=== PATIENT | female | born 1980 | race African-American/Black ===

== ENCOUNTER 2021-12-14 17:14 | Emergency (ER) | payer BC, OTHER ==
[2021-12-14] MEDS ORDERED: ASPIRIN 81 MG CHEWABLE TABLET ONE (18:00)
[2021-12-14] MEDS ORDERED: MORPHINE 4 MG/ML SYR ONE ×2 (18:00→22:02)
[2021-12-14] MEDS ORDERED: ONDANSETRON 4 MG/2 ML VIAL ONE ×2 (18:00→22:02)
[2021-12-14 18:13] LABS: Absolute Lymphocytes (CBC) 1.6 K/uL (0.7-4.9); Hematocrit 41.2 % (36.0-45.0); Lymphocytes % 29.7 % (15.3-44.8); MCV 91.5 fL (80-100); MPV 6.9 fL (7.6-11.3); RBC Red Blood Cell Count 4.51 M/uL (3.86-4.86)
[2021-12-14 18:15] LABS: Protime INR 1.07
--- NOTE | 2021-12-14 18:21 | RAD REPORT ---
EXAM DESCRIPTION: Dorota Single View12/14/2021 5:59 pm CLINICAL HISTORY: Chest pain COMPARISON: 2018 FINDINGS: The lungs appear clear of acute infiltrate. The heart is normal size IMPRESSION: No acute abnormalities displayed
[2021-12-14 18:24] LABS: Albumin 3.6 g/dL (3.4-5.0); Bilirubin Direct 0.3 mg/dL (0-0.2); Bilirubin Total 0.9 mg/dL (0.2-1.0); Magnesium 1.8 mg/dL (1.8-2.4); Protein, Total 8.8 g/dL (6.4-8.2); Troponin High Sensitivity 4.8 pg/mL (<58.9)
[2021-12-14] MEDS ORDERED: KETOROLAC 30 MG/ML INJ ONE (19:42)
[2021-12-14] MEDS ORDERED: NA CHLORIDE 0.9% 1,000 ML ONE (19:42)
[2021-12-14 20:00] LABS: Urine Blood Negative (Negative); Urine Glucose Negative (Negative); Urine Protein Trace (Negative); Urine Specific Gravity 1.025 (1.005-1.030)
--- NOTE | 2021-12-14 20:24 | RAD REPORT ---
EXAM DESCRIPTION: CT - Chest For Pe Angio - 12/14/2021 8:11 pm CLINICAL HISTORY: Chest pain COMPARISON: 2018 TECHNIQUE: Dynamically enhanced axial 3 mm thick images of the chest were obtained during administra tion of <100> mL Isovue 370 IV contrast. Coronal and oblique reconstruction images were generated and reviewed. Exam utilizes a protocol for optimal evaluation of pulmonary arterial tree. Maximum intensity projections 3D imaging was utilized All CT scans are performed using dose optimization technique as appropriate and may include automated exposure control or mA/KV adjustment according to patient size. FINDINGS: A pulmonary embolus is not seen. A thoracic aortic aneurysm is not noted. A pleural effusion is not seen. A pericardial effusion is not seen. A lung consolidation is not present. IMPRESSION: Negative for a pulmonary embolism.
[2021-12-14] MEDS ORDERED: LABETALOL 20 MG/4ML SYRINGE IV ONE (21:27)
[2021-12-14] MEDS ORDERED: POTASSIUM 25 MEQ EFFERV TAB ONE ×2 (21:27→23:02)
[2021-12-14 22:05] LABS: Urine Specific Gravity/Preg 1.025 (1.005-1.030)
[2021-12-14] MEDS ORDERED: PROMETHAZINE INJ 25 MG/ML AMP ONE ×2 (23:01→23:04)
--- NOTE | 2021-12-14 23:49 | EDPHYS ---
Physician Documentation [facility] Name: Karie Bennett Age: 41 yrs Sex: Female : 1980 Arrival Date: 12/14/2021 Time: 17:15 Bed 6 Private MD: ED Physician Eb Rao HPI: 12/14 17:33 This 41 yrs old Black Female presents to ER via Ambulatory with complaints of High cp Blood Pressure, Chest Pain, Shortness Of Breath. 17:33 The patient or guardian reports chest pain that is located primarily in the anterior cp aspect of right upper chest and right breast. 17:33 Onset: 2 day(s) ago. The pain radiates to right back. Associated signs and symptoms: cp Pertinent positives: cough, shortness of breath. 17:34 The chest pain is described as aching, a pressure. Duration: The patient or guardian cp reports a single episode, that is still ongoing. Severity of pain: in the emergency department the pain is unchanged. Patient reports right side upper chest pain that started yesterday. Denies injury. History of HTN. Patient reports taking daily hypertensive medication, Lisinopril. 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 - Social history:: Smoking status: Patient denies any tobacco usage or history of. ROS: 17:35 Constitutional: Negative for body aches, chills, fever, poor PO intake. cp 17:35 Cardiovascular: Positive for chest pain, Negative for edema, palpitations. cp 17:35 Respiratory: Positive for shortness of breath. Exam: 17:35 ECG was reviewed by the Attending Physician. cp 17:40 Constitutional: The patient appears in no acute distress, alert, awake, cp non-diaphoretic, non-toxic, well developed, well nourished, uncomfortable. 17:40 Head/Face: Normocephalic, atraumatic. cp 17:40 Eyes: Periorbital structures: appear normal, Conjunctiva: normal, no exudate, no injection, Sclera: no appreciated abnormality, Lids and lashes: appear normal, bilaterally. 17:40 ENT: External ear(s): are unremarkable, Nose: is normal, Mouth: Lips: moist, Oral mucosa: pink and intact, moist, Posterior pharynx: Airway: no evidence of obstruction, patent. 17:40 Neck: ROM/movement: is normal, is supple, without pain, no range of motions limitations, no nuchal rigidity. 17:40 Chest/axilla: Inspection: normal, Palpation: crepitus, is not appreciated, tenderness, that is severe, of the anterior aspect of right upper chest and right breast, that partially reproduces the patient's complaints. 17:40 Cardiovascular: Rate: normal, Rhythm: regular, Heart sounds: murmur, not appreciated, Edema: is not appreciated, JVD: is not appreciated. 17:40 Respiratory: the patient does not display signs of respiratory distress, Respirations: normal, no use of accessory muscles, no retractions, labored breathing, is not present, Breath sounds: are clear throughout, no decreased breath sounds, no stridor, no wheezing. 17:40 Abdomen/GI: Inspection: abdomen appears normal, Bowel sounds: active, all quadrants, Palpation: abdomen is soft and non-tender, in all quadrants. 17:40 Back: pain, that is moderate, of the right scapular area, vertebral tenderness, is not appreciated. 17:40 Skin: cellulitis, is not appreciated, no rash present. 17:40 Neuro: Orientation: to person, place \\T\\ time. Mentation: is normal, Cerebellar function: is grossly normal, Motor: moves all fours, strength is normal, Sensation: is normal. Vital Signs: 17:22 BP 189 / 113; Pulse 87; Resp 17; Temp 97.1(TE); Pulse Ox 100% on R/A; Weight 75.3 kg; ss Height 5 ft. 6 in. (167.64 cm); Pain 10/10; 18:10 BP 172 / 111; Pulse 84; Resp 16; Pulse Ox 100% on R/A; kr3 19:05 BP 179 / 106; kr3 21:28 BP 185 / 108; Pulse 72; Resp 18; Pulse Ox 100% on R/A; kd3 22:02 BP 159 / 113; Pulse 75; Resp 18; Pulse Ox 100% on R/A; kd3 17:22 Body Mass Index 26.79 (75.30 kg, 167.64 cm) ss MDM: 17:16 Patient medically screened. cp 18:00 Differential diagnosis: acute myocardial infarction, anxiety, chest wall pain, cp costochondritis, esophagitis, pericarditis, pleurisy, pneumonia, pneumothorax, pulmonary embolus. 23:10 Data reviewed: vital signs, nurses notes, lab test result(s), EKG, radiologic studies, cp CT scan, plain films. 23:10 The patient was given aspirin in the Emergency Department. cp 23:47 ED course: VSS. Blood pressure remains elevated. Recommend f/u with pcp. Low suspicion cp for cardiac cause of pain with normal EKG and negative troponin times 2. Will discharge to home for continued monitoring. 23:47 Test interpretation: by ED physician or midlevel provider: ECG, plain radiologic cp studies. Counseling: I had a detailed discussion with the patient and/or guardian regarding: the historical points, exam findings, and any diagnostic results supporting the discharge/admit diagnosis, the presence of at least one elevated blood pressure reading (>120/80) during this emergency department visit, lab results, radiology results, the need for outpatient follow up, a family practitioner, to return to the emergency department if symptoms worsen or persist or if there are any questions or concerns that arise at home. Response to treatment: the patient's symptoms have mildly improved after treatment, and as a result, I will discharge patient. Special discussion: Based on the patient's history, exam, and Dx evaluation, there is no indication for emergent intervention or inpatient Tx. It is understood by the patient/guardian that if the Sx's persist or worsen they need to return immediately for re-evaluation. 12/14 17:30 Order name: Basic Metabolic Panel; Complete Time: 19:09 cp 12/14 20:30 Interpretation: Normal except: K 3.0; BUN 5. cp 12/14 17:30 Order name: CBC with Diff; Complete Time: 19:09 cp 12/14 21:05 Interpretation: Normal except: MCV 91.5; MPV 6.9. cp 12/14 17:30 Order name: D-Dimer; Complete Time: 19:09 cp 12/14 17:30 Order name: LFT's; Complete Time: 19:09 cp 12/14 17:30 Order name: Magnesium; Complete Time: 19:09 cp 12/14 17:30 Order name: NT PRO-BNP; Complete Time: 19:09 cp 12/14 17:30 Order name: PT-INR; Complete Time: 19:09 cp 12/14 17:30 Order name: Troponin HS; Complete Time: 19:09 cp 12/14 17:30 Order name: XRAY Chest (1 view); Complete Time: 19:09 cp 12/14 17:36 Order name: COVID-19 SARS RT PCR (Document "Date of Onset" if Symptomatic); Complete cp Time: 21:05 12/14 21:05 Interpretation: Reviewed. cp 12/14 19:10 Order name: CT Chest For PE Angio; Complete Time: 20:29 cp 12/14 20:30 Interpretation: Report reviewed. cp 12/14 20:01 Order name: Urine Dipstick-Ancillary; Complete Time: 20:29 EDMS 12/14 20:30 Interpretation: Normal except: UKET Trace; UPROT Trace. cp 12/14 20:12 Order name: Urine --Ancillary (enter results); Complete Time: 22:50 mw2 12/14 21:34 Order name: Troponin High Sensitivity; Complete Time: 22:50 cp 12/14 17:30 Order name: EKG; Complete Time: 17:31 cp 12/14 17:30 Order name: Cardiac monitoring; Complete Time: 17:33 cp 12/14 17:30 Order name: EKG - Nurse/Tech; Complete Time: 17:33 cp 12/14 17:30 Order name: IV Saline Lock; Complete Time: 17:51 cp 12/14 17:30 Order name: Labs collected and sent; Complete Time: 17:51 cp 12/14 17:30 Order name: O2 Per Protocol; Complete Time: 17:33 cp 12/14 17:30 Order name: O2 Sat Monitoring; Complete Time: 17:33 cp 12/14 17:30 Order name: Urine Dipstick-Ancillary (obtain specimen); Complete Time: 20:00 cp 12/14 17:30 Order name: Urine Test (obtain specimen); Complete Time: 20:00 cp EC:35 Rate is 85 beats/min. Rhythm is regular. NJ interval is normal. QRS interval is normal. cp QT interval is normal. T waves are Inverted in lead aVR. Interpreted by me. Reviewed by me. Administered Medications: 18:04 Drug: Aspirin Chewable Tablet 324 mg Route: PO; ll1 19:06 Follow up: Response: No adverse reaction kr3 18:04 Drug: morphine 4 mg {Note: rass 0, pain 10/10.} Route: IVP; Infused Over: 4 mins; Site: ll1 left antecubital; 19:06 Follow up: Response: No adverse reaction kr3 18:05 Drug: Zofran (Ondansetron) 4 mg Route: IVP; Site: left antecubital; 1 19:06 Follow up: Response: No adverse reaction; Pain is decreased; RASS: Alert and Calm (0) kr3 19:56 Drug: Ketorolac 15 mg Route: IVP; Site: right antecubital; kd3 19:56 Drug: NS 0.9% 1000 ml Route: IV; Rate: 1 bolus; Site: right antecubital; kd3 21:29 Drug: Potassium Effervescent Tablet 50 mEq Route: PO; kd3 21:29 Drug: Labetalol 10 mg Route: IV; Rate: calculated rate; Site: right antecubital; kd3 22:01 Drug: morphine 4 mg Route: IVP; Infused Over: 4 mins; Site: right antecubital; kd3 22:01 Drug: Zofran (Ondansetron) 4 mg Route: IVP; Site: right antecubital; kd3 23:04 Drug: Potassium Effervescent Tablet 25 mEq Route: PO; kd3 23:04 Drug: Phenergan (promethazine) 12.5 mg Route: IVP; Site: right antecubital; kd3 Disposition Summary: 12/14/21 23:49 Discharge Ordered Location: Home cp Problem: new cp Symptoms: have improved cp Condition: Stable cp Diagnosis - Chest pain, unspecified cp - Hypertensive heart disease without heart failure cp Followup: cp - With: Private Physician - When: 1 - 2 days - Reason: Recheck today's complaints Discharge Instructions: - Discharge Summary Sheet cp - Nonspecific Chest Pain, Adult cp - Hypertension, Adult cp - Aspirin and Your Heart cp - Form - Blood Pressure Record Sheet cp - How to Take Your Blood Pressure cp Forms: - Medication Reconciliation Form cp - Thank You Letter cp - Antibiotic Education cp - Prescription Opioid Use cp - Work release form lp1 Prescriptions: - Diclofenac Sodium 75 mg Oral Tablet Sustained Release - take 1 tablet by ORAL route 2 times per day; 30 tablet; Refills: 0, Product cp Selection Permitted - Tramadol 50 mg Oral Tablet - take 1 tablet by ORAL route every 8 hours as needed; 12 tablet; Refills: 0, cp Product Selection Permitted Signatures: Dispatcher [employer] [facility] Pretty Tobin RN RN ss Eb Dewey PA PA cp Benedicto Edgar RN RN ll1 Maia Lamb RN RN kd3 Angela Peñaloza RN kr3 Corrections: (The following items were deleted from the chart) 17:35 17:34 The patient or guardian reports chest pain that is located primarily in the cp anterior aspect of right upper chest and right breast, 18:08 17:33 ECG was reviewed by the Attending Physician. [facility] 18:08 17:33 Rate is 85 beats/min. Rhythm is regular. NJ interval is normal. QRS interval is cp normal. QT interval is normal. T waves are Inverted in lead aVR. Interpreted by me. Reviewed by me. cp 20:37 19:11 Abdomen Limited+US.RAD.BRZ ordered. [facility] 12/15 19:42 12/14 23:11 ED course: VSS. Blood pressure remains elevated. Recommend f/u with pcp. cp Low suspicion for cardiac cause of pain with normal EKG and negative troponin times 2. Will discharge to home for continued monitoring. cp
--- NOTE | 2021-12-14 23:49 | ER ---
Nurse's Notes [facility] Name: Karie Bennett Age: 41 yrs Sex: Female : 1980 Arrival Date: 12/14/2021 Time: 17:15 Bed 6 Private MD: Diagnosis: Chest pain, unspecified;Hypertensive heart disease without heart failure Presentation: 12/14 17:22 Chief complaint: Patient states: Chest discomfort, shortness of breath and high blood ss pressure x 2 days. Coronavirus screen: Client denies travel out of the [place] in the last 14 days. Ebola Screen: Patient denies exposure to infectious person. Patient denies travel to an Ebola-affected area in the 21 days before illness onset. Initial Sepsis Screen: Does the patient meet any 2 criteria? No. Patient's initial sepsis screen is negative. Does the patient have a suspected source of infection? No. Patient's initial sepsis screen is negative. Risk Assessment: Do you want to hurt yourself or someone else? Patient reports no desire to harm self or others. Onset of symptoms. Onset of symptoms was December 12, 2021. 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 - Social history:: Smoking status: Patient denies any tobacco usage or history of. Screenin:06 Abuse screen: Denies threats or abuse. Nutritional screening: No deficits noted. ll1 Tuberculosis screening: No symptoms or risk factors identified. Fall Risk IV access (20 points). Total Thompson Fall Scale indicates No Risk (0-24 pts). Assessment: 18:05 General: Appears uncomfortable, Behavior is calm, cooperative, appropriate for age. ll1 Pain: Complains of pain in anterior aspect of right upper chest Pain radiates to R upper back Quality of pain is described as aching, pressure, Pain began 1 day ago. Aggravated by increased activity, weight bearing. Cardiovascular: Reports chest pain, fatigue, shortness of breath, Heart tones S1 S2. Respiratory: Reports shortness of breath Breath sounds are clear bilaterally. 19:06 Reassessment: No changes from previously documented assessment. Patient and/or family kr3 updated on plan of care and expected duration. Pain level reassessed. Patient is alert, oriented x 3, equal unlabored respirations, skin warm/dry/pink. 19:39 General: Appears in no apparent distress. Behavior is calm, cooperative. Neuro: Level kd3 of Consciousness is awake, alert, obeys commands, Oriented to person, place, time, situation. Respiratory: Airway is patent Trachea midline Respiratory effort is even, unlabored, Respiratory pattern is regular, symmetrical. 23:04 GI: Pt is actively vomiting undigested food. kd3 Vital Signs: 17:22 BP 189 / 113; Pulse 87; Resp 17; Temp 97.1(TE); Pulse Ox 100% on R/A; Weight 75.3 kg; ss Height 5 ft. 6 in. (167.64 cm); Pain 10/10; 18:10 BP 172 / 111; Pulse 84; Resp 16; Pulse Ox 100% on R/A; kr3 19:05 BP 179 / 106; kr3 21:28 BP 185 / 108; Pulse 72; Resp 18; Pulse Ox 100% on R/A; kd3 22:02 BP 159 / 113; Pulse 75; Resp 18; Pulse Ox 100% on R/A; kd3 17:22 Body Mass Index 26.79 (75.30 kg, 167.64 cm) ED Course: 17:15 Patient arrived in ED. rg4 17:15 Eb Dewey PA is PHCP. cp 17:15 Baldev Tristan DO is Attending Physician. cp 17:23 Triage completed. ss 17:23 Arm band placed on right wrist. ss 17:29 Angela Peñaloza, DIA is Primary Nurse. kr3 17:50 Inserted saline lock: 22 gauge in left antecubital area, using aseptic technique. Blood kr3 collected. 18:01 XRAY Chest (1 view) In Process Unspecified. EDMS 18:05 COVID-19 SARS RT PCR (Document "Date of Onset" if Symptomatic) Sent. ll1 18:06 Patient has correct armband on for positive identification. Bed in low position. Call 1 light in reach. Side rails up X 1. Client placed on continuous cardiac and pulse oximetry monitoring. NIBP monitoring applied. 18:07 Patient maintains SpO2 saturation greater than 95% on room air. ll1 20:01 Inserted saline lock: 20 gauge in right antecubital area, using aseptic technique. IV kd3 discontinued, intact, bleeding controlled, No redness/swelling at site. Pressure dressing applied. 20:12 COVID-19 SARS RT PCR (Document "Date of Onset" if Symptomatic) Sent. mw2 20:13 CT Chest For PE Angio In Process Unspecified. EDMS 21:09 Eb Rao MD is Attending Physician. cp 07 00:10 No provider procedures requiring assistance completed. kd3 Administered Medications: 12/14 18:04 Drug: Aspirin Chewable Tablet 324 mg Route: PO; ll1 19:06 Follow up: Response: No adverse reaction kr3 18:04 Drug: morphine 4 mg {Note: rass 0, pain 10/10.} Route: IVP; Infused Over: 4 mins; Site: ll1 left antecubital; 19:06 Follow up: Response: No adverse reaction kr3 18:05 Drug: Zofran (Ondansetron) 4 mg Route: IVP; Site: left antecubital; 1 19:06 Follow up: Response: No adverse reaction; Pain is decreased; RASS: Alert and Calm (0) kr3 19:56 Drug: Ketorolac 15 mg Route: IVP; Site: right antecubital; kd3 19:56 Drug: NS 0.9% 1000 ml Route: IV; Rate: 1 bolus; Site: right antecubital; kd3 21:29 Drug: Potassium Effervescent Tablet 50 mEq Route: PO; kd3 21:29 Drug: Labetalol 10 mg Route: IV; Rate: calculated rate; Site: right antecubital; kd3 22:01 Drug: morphine 4 mg Route: IVP; Infused Over: 4 mins; Site: right antecubital; kd3 22:01 Drug: Zofran (Ondansetron) 4 mg Route: IVP; Site: right antecubital; kd3 23:04 Drug: Potassium Effervescent Tablet 25 mEq Route: PO; kd3 23:04 Drug: Phenergan (promethazine) 12.5 mg Route: IVP; Site: right antecubital; kd3 Medication: 18:06 VIS not applicable for this client. ll1 Outcome: 23:49 Discharge ordered by MD. radford 12/15 00:11 Discharged to home ambulatory. kd3 Condition: improved Discharge instructions given to patient, Instructed on discharge instructions, follow up and referral plans. medication usage, Demonstrated understanding of instructions, follow-up care, medications, Prescriptions given X 2. 00:11 Patient left the ED. kd3 Signatures: Dispatcher [employer] EDMS Pretty Tobin RN RN ss Eb Dewey PA PA Suzette Espinoza rg4 Hari Lopez mw2 Benedicto Edgar RN RN ll1 Maia Lamb RN RN kd3 Angela Peñaloza RN RN kr3
[2021-12-15 01:31] VITALS: TEMP 97.1; O2SAT 100
[2021-12-15 01:39] VITALS: BP 159/113
--- NOTE | 2021-12-18 14:00 | EKG ---
Test Date: 2021-12-14 Test Time: 17:28:11 Apprentice Plant Attendant: DICKL MEASUREMENT RESULTS: Intervals: Rate: 85 VA: 146 QRSD: 86 QT: 386 QTc: 459 [place]: P: 74 VA: 146 QRS: 5 T: 60 INTERPRETIVE STATEMENTS: Normal sinus rhythm Normal ECG No previous ECG available for comparison Electronically Signed On 12-18-21 13:52:10 CDT by Jb Brito
== END 2021-12-15 00:11 | disposition home or self-care (01) ==
LOC: ER 17:14
DX: I11.9 Hypertensive heart disease without heart failure (principal); I10 Essential (primary) hypertension; Z20.822 Contact with and (suspected) exposure to COVID-19
CPT/HCPCS: 93005; 85025; 80048; 36415; 83735; 81025; 85610; 85379; 80076; 81003; 84484 ×2; 83880; 71275; 71045; U0003; Q9967; J2550; J7030; J2405 ×2; 99284

== ENCOUNTER 2022-10-16 12:44 | Emergency (ER) | payer OTHER ==
--- OUTSIDE RECORDS SUMMARY | 2022-10-16 12:49 | XMS REPORT | Continuity of Care Document ---
:1980 Author Organization [facility] t Address [address] [facility] [place] [address] Care Team Providers Name Role Phone Tiffany SOTO, Alessandro Primary Care Physician [phone] TESS YI Attending Clinician Unavailable MARIO MANCILLA Attending Clinician Unavailable LAB59 Attending Clinician Unavailable [place] SOTO, Gallo Avila Attending Clinician [phone] Mario Mancilla DO Attending Clinician Tess Yi MD Attending Clinician LAB90 Attending Clinician Unavailable GALOL GROVE Attending Clinician Unavailable [email or web address] Attending Clinician Unavailable [email or web address] Admitting Clinician Unavailable Payers Payer Name Policy Type Policy Number Effective Date Expiration Date S сер[facility]ей [facility] 3 [id number] 2021 00:00:00 [facility] [id number] Problems Condition Condition Condition Status Onset Resolution Last Treating Co mments Source Name Details Category Date Date Treatment Clinician Date Polyarthra Polyarthra Disease Active 2021-06 K elsey lgia lgia 0-05 Seybold 00:00: - 00 Externa l Connective Connective Disease Active K elsepatricia tissue tissue 8-04 Seybold disease disease 00:00: - 00 Externa l Raynaud's Raynaud's Disease Active Bob sey disease disease 804 Seybold without without 00:00: - gangrene gangrene 00 Documentation Coordinator a l Overweight Overweight Disease Active K elsey (BMI (BMI 7- Seybold 25.0-29.9) 25.0-29.9) 00:00: - 00 Externa l Primary Primary Disease Active Marlene hypertensi hypertensi 12-28 Se ybold on on 00:00: - 00 Externa l Well adult Well adult Disease Active K mariela exam exam 12-28 Seybold 00:00: - 00 Externa l Varicose Varicose Disease Active Kelse y veins of veins of 12-28 Seybol d bilateral bilateral 00:00: - lower lower 00 Externa extremitie extremitie l s with s with other other complicati complicati ons ons Viral Viral Disease Active Methodi hepatitis hepatitis 10-17 st [facility] 00:00: Hospita 00 l Migraine Migraine Disease Active Metho di 10-17 00:00: Hospita 00 l Hypertensi Hypertensi Disease Active M ethodi ve ve 5-10 st disorder disorder 00:00: Hospit a 00 l Varicose Varicose Disease Active Metho di veins of veins of 5-10 st both lower both lower 00:00: Ho spita extremitie extremitie 00 l s s Reactive Reactive Disease Active Metho di airway airway 5-10 st disease disease 00:00: Hospita 00 l Tubo-ovari Tubo-ovari Disease Active M ethodi an abscess an abscess 10-17 st 00:00: Hospita 00 l Endometrio Endometrio Disease Active M ethodi sis sis 5 st 00:00: Hospita 00 l Hip pain Hip pain Disease Active Metho di 10-17 st 00:00: Hospita 00 l Left leg Left leg Disease Active Metho di pain pain 10-17 st 00:00: Hospita 00 l Cough Cough Disease Active Methodi 5-10 st 00:00: Hospita 00 l Adult body Adult body Disease Active 0 M ethodi mass index mass index 5-10 st greater greater 00:00: Hospita than 30 than 30 00 l Peripheral Peripheral Disease Active M ethodi venous venous 5-10 st insufficie insufficie 00:00: Ho spita ncy ncy 00 l Allergies, Adverse Reactions, Alerts This patient has no known allergies or adverse reactions. Family History Family Member Diagnosis Comments Start Date Stop Date Source Natural father Heart attack [facility] Natural father Hypertension [facility] Natural father Diabetes [facility] Natural mother Hypertension [facility] Social History Social Habit Start Date Stop Date Quantity Comments Source History SDOH Marlene Liu ld - Alcohol Frequency Externa l History SDOH Marlene Liu ld - Alcohol Std Drinks Documentation Coordinator al History SDOH Marlene Liu ld - Alcohol Binge External Gender identity [facility] Sexual orientation Method ist [facility] Cigarettes smoked 2021-12-28 2021-12-28 Marlene Engel - current (pack per 00:00:00 00:00:00 Externa l day) - Reported Cigarette 2021-12-28 2021-12-28 Marlene Engel - pack-years 00:00:00 00:00:00 External Tobacco use and 2021-12-28 2021-12-28 Former smokeless Bob Engel - exposure 00:00:00 00:00:00 tobacco user External Alcohol Comment 2021-12-28 2021-12-28 Socially Marlene cheema - 00:00:00 00:00:00 External Education 2021-12-28 2021-12-28 16 Marlene Engel - 00:00:00 00:00:00 External History of Social 2019-01-27 2019-01-[address] function 00:00:00 00:00:00 Hospital Alcohol intake 2019-01-06 2019-01-06 [facility] non-drinker of Hospital alcohol (finding) History of tobacco 2013-08-07 User of Marlene Engel - use 00:00:00 smokeless External tobacco Sex Assigned At [birth year] [facility] 00:[facility] Hospital Smoking Status Start Date Stop Date Source Never smoked tobacco [facility] Ex-smoker 2021-12-28 00:00:00 2021-12-28 00:00:00 Marlene geiger - External Medications Ordered Filled Start Stop Current Ordering Indication Dosage Frequency Signature Comments Components Source Medication Medication Date Date Medication? Clinician (SIG) Name Name Vitamin D, Yes 03101680 26907D Take 1 Marlene Ergocalcife 3-02 capsule Seybo ld rol, 1.25 00:00: (50,000 - MG (68841 00 units Externa UT) oral total) by l Capsule mouth once a week Meloxicam Yes [id number] 7.5mg Take 1 K elsey 7.5 MG oral 3-01 tablet Seybol d Tablet 00:00: (7.5 mg - 00 total) by Externa mouth l daily Tizanidine Yes [id number] 2mg QD Take 1 K elsey HCl 2 MG 3-01 tablet (2 Seybol d oral Tablet 00:00: mg total) - 00 by mouth Externa nightly as l needed for muscle spasms Meloxicam Yes [id number] 7.5mg Take 1 K elsey 7.5 MG oral 3-01 tablet Seybol d Tablet 00:00: (7.5 mg - 00 total) by Externa mouth l daily Tizanidine Yes [id number] 2mg QD Take 1 K elsey HCl 2 MG 3-01 tablet (2 Seybol d oral Tablet 00:00: mg total) - 00 by mouth Externa nightly as l needed for muscle spasms Wegovy 2.4 2022- No INJECT 2.4 Marlene MG/0.75ML 2-09 -22 MG Seybold subcutaneou 00:00: 00:00 SUBCUTANEO - s Solution 00 :00 USLY Externa Auto-inject WEEKLY. l or Phentermine 2022- No 1{tbl} Take 1 K elsey HCl 37.5 MG 2-12 09- tablet by Se ybold oral Tablet 00:00: 00:00 mouth - 00 :00 daily Externa l Carvedilol 2023-0 Yes [id number] 25mg Take 1 K elsey (Coreg) 25 1-20 tablet (25 Sey bold MG oral 00:00: mg total) - Tablet 00 by mouth Externa in the l morning and 1 tablet (25 mg total) in the evening. Take with meals. Carvedilol 2022-0 Yes [id number] 25mg Take 1 K elsey (Coreg) 25 1-20 tablet (25 Sey bold MG oral 00:00: mg total) - Tablet 00 by mouth Externa in the l morning and 1 tablet (25 mg total) in the evening. Take with meals. Carvedilol 2022-0 Yes [id number] 25mg Take 1 K elsey (Coreg) 25 1-20 tablet (25 Sey bold MG oral 00:00: mg total) - Tablet 00 by mouth Externa in the l morning and 1 tablet (25 mg total) in the evening. Take with meals. Carvedilol 2022-0 Yes [id number] 25mg Take 1 K elsey (Coreg) 25 1-20 tablet (25 Sey bold MG oral 00:00: mg total) - Tablet 00 by mouth Externa in the l morning and 1 tablet (25 mg total) in the evening. Take with meals. metroNIDAZO 2021-06 Yes 500mg Q.5D Take [address] [facility] [facility] (FlagyL) 1-16 tablet [facility] 500 MG 00:00: (500 mg Medical tablet 00 total) by Center mouth 2 (two) times daily. metroNIDAZO 2021-06 Yes 500mg Q.5D Take [address] [facility] (FlagyL) 1-16 tablet [facility] 500 MG 00:00: (500 mg Medical tablet 00 total) by Center mouth 2 (two) times daily. Carvedilol 2022- No [id number] 12.5mg Take 1 Marlene (Coreg) 9-28 01-20 tablet Seybold 12.5 MG 00:00: 00:00 (12.5 mg - oral Tablet 00 :00 total) by Ext coty mouth in l the morning and 1 tablet (12.5 mg total) in the evening. Take with meals. medroxyPROG Yes 150mg Inject [address] ESTERone 9-20 mL (150 mg [facility] 150 mg/mL 00:00: total) Medica l Syrg 00 intramuscu Center larly every 3 (three) months. medroxyPROG 0 Yes 150mg Inject [address] ESTERone 9-20 mL (150 mg [facility] 150 mg/mL 00:00: total) Medica l Syrg 00 intramuscu Center larly every 3 (three) months. Amlodipine 2021-0 Yes [id number] 10mg Take 1 K elsey Besylate 8-15 tablet (10 Seybo ld (Norvasc) 00:00: mg total) - 10 MG oral 00 by mouth Exter na Tablet daily l Amlodipine 2021-0 Yes [id number] 10mg Take 1 K elsey Besylate 8-15 tablet (10 Seybo ld (Norvasc) 00:00: mg total) - 10 MG oral 00 by mouth Exter na Tablet daily l Amlodipine 0 Yes [id number] 10mg Take 1 K elsey Besylate 8-15 tablet (10 Seybo ld (Norvasc) 00:00: mg total) - 10 MG oral 00 by mouth Exter na Tablet daily l Amlodipine 2021-0 Yes [id number] 10mg Take 1 K elsey Besylate 8-15 tablet (10 Seybo ld (Norvasc) 00:00: mg total) - 10 MG oral 00 by mouth Exter na Tablet daily l amLODIPine Yes 5mg QD Take [address] (NORVASC) 5 8-08 by mouth Luke s MG tablet 00:00: daily. Medica l 00 Johnson amLODIPine 0 Yes 5mg QD Take [address] (NORVASC) 5 8-08 by mouth Luke s MG tablet 00:00: daily. Medica l 00 Center carvediloL 2021-[address] [facility] (COREG) 8-05 Tablet(s) [facility] 6.25 MG 00:00: By Mouth Medica l tablet 00 Morning-Ev Center ening carvediloL 2021-[address] [facility] (COREG) 8-05 Tablet(s) [facility] 6.25 MG 00:00: By Mouth Medica l tablet 00 Morning-Ev Center ening medroxyPROG 2021-0 Yes INJECT ONE Marlene ESTERone 6-20 (1) Seybold Acetate 150 00:00: MILLILITER - MG/ML 00 S Externa intramuscul INTRAMUSCU l ar LARLY Suspension EVERY 3 Prefilled MONTHS. Syringe medroxyPROG Yes INJECT ONE Marlene ESTERone 6-20 (1) Seybold Acetate 150 00:00: MILLILITER - MG/ML 00 S Externa intramuscul INTRAMUSCU l ar LARLY Suspension EVERY 3 Prefilled MONTHS. Syringe medroxyPROG Yes INJECT ONE Marlene ESTERone 6-20 (1) Seybold Acetate 150 00:00: MILLILITER - MG/ML 00 S Externa intramuscul INTRAMUSCU l ar LARLY Suspension EVERY 3 Prefilled MONTHS. Syringe medroxyPROG Yes INJECT ONE Marlene ESTERone 6-20 (1) Seybold Acetate 150 00:00: MILLILITER - MG/ML 00 S Externa intramuscul INTRAMUSCU l ar LARLY Suspension EVERY 3 Prefilled MONTHS. Syringe lisinopril- Yes lisinopril Methodi hydrochloro 5-[address] thiazide 15:57: mg-hydroch Hos brittaney (PRINZIDE,Z 01 lorothiazi l ESTORETIC) de 12.5 mg 20-12.5 mg tablet per tablet lisinopril- Yes lisinopril Methodi hydrochloro 5-[address] thiazide 15:57: mg-hydroch Hos brittaney (PRINZIDE,Z 01 lorothiazi l ESTORETIC) de 12.5 mg 20-12.5 mg tablet per tablet omeprazole Yes omeprazole M ethodi (PriLOSEC) 5-[address] 40 MG 15:57: capsule,de Hospit a capsule layed l release omeprazole Yes omeprazole M ethodi (PriLOSEC) 5-[address] 40 MG 15:57: capsule,de Hospit a capsule layed l release NASCOBAL Yes Methodi 500 4-22 st mcg/spray 00:00: Hospita spray,non-a 00 l erosol NASCOBAL Yes Methodi 500 4-22 st mcg/spray 00:00: Hospita spray,non-a 00 l erosol Immunizations Ordered Immunization Filled Immunization Date Status Commen ts Source Name Name Tdap- (Boostrix, 2022-08-01 Completed Marlene ellisbovanessa - Adacel) 00:00:00 External Tdap- (Boostrix, 2022-08-01 Completed Marlene geiger - Adacel) 00:00:00 External Tdap- (Boostrix, 2022-08-01 Completed Marlene ellisbold - Adacel) 00:00:00 External DTaP 2011-06-10 Completed Marlene Engel - 00:00:00 External DTaP 2011-06-10 Completed Marlene Engel - 00:00:00 External DTaP 2011-06-10 Completed Marlene Engel - 00:00:00 External DTaP 2011-06-10 Completed Marlene Engel - 00:00:00 External D[facility]P 2011-06-10 [facility] D[facility]P 2011-06-10 [facility] Vital Signs Vital Name Observation Time Observation Value Comments Source Systolic blood 2022-09-10 21:15:00 116 mm[Hg] Marlene Olivaresybold - pressure External Diastolic blood 2022-09-10 21:15:00 79 mm[Hg] Lyubov gomez Seybold - pressure External Heart rate 2022-09-10 21:15:00 83 /min Marlene geiger - External Body temperature 2022-09-10 21:15:00 36.44 Lashell Cydney ellis Seybgary - External Respiratory rate 2022-09-10 21:15:00 14 /min Cydney ellis Seybgary - External Body height 2022-09-10 21:15:00 165.1 cm Marlene geiger - External Body weight 2022-09-10 21:15:00 72.576 kg Marlene geiger - External BMI 2022-09-10 21:15:00 26.63 kg/m2 Marlene geiger - External Oxygen saturation in 2022-09-10 21:15:00 99 /min Marlene Engel - Arterial blood by External Pulse oximetry Systolic blood 2022-08-08 15:19:00 110 mm[Hg] Marlene Olivaresybold - pressure External Diastolic blood 2022-08-08 15:19:00 76 mm[Hg] Kelse y Seybold - pressure External Heart rate 2022-08-08 15:19:00 80 /min Marlene S eybold - External Body temperature 2022-08-08 15:19:00 36.78 Lashell Cydney ey Seybold - External Respiratory rate 2022-08-08 15:19:00 18 /min Cydney ey Seybold - External Body height 2022-08-08 15:19:00 165.1 cm Marlene S eybold - External Body weight 2022-08-08 15:19:00 73.936 kg Marlene S eybold - External BMI 2022-08-08 15:19:00 27.12 kg/m2 Marlene S eybold - External Systolic blood 2022-08-01 16:33:00 122 mm[Hg] Marlene Seybold - pressure External Diastolic blood 2022-08-01 16:33:00 85 mm[Hg] Lyubov y Seybold - pressure External Body temperature 2022-08-01 16:33:00 36.56 Lashell Cydney ellis Seybold - External Respiratory rate 2022-08-01 16:33:00 14 /min Cydney ellis Seybold - External Body height 2022-08-01 16:33:00 165.1 cm Marlene Vargas eybold - External Body weight 2022-08-01 16:33:00 73.029 kg Marlene Vargas eybold - External BMI 2022-08-01 16:33:00 26.79 kg/m2 Marlene ellisbold - External Oxygen saturation in 2022-08-01 16:33:00 99 /min Marlene Engel - Arterial blood by External Pulse oximetry HEIGHT 2022-01-18 14:07:00 167.6 cm WEIGHT 2022-01-18 14:07:00 75.751 kg HEIGHT 2022-01-18 14:07:00 167.6 cm WEIGHT 2022-01-18 14:07:00 75.751 kg Systolic blood 2022-01-18 14:07:00 154 mm[Hg] [facility] Diastolic blood 2022-01-18 14:07:00 101 mm[Hg] [facility] Heart rate 2022-01-18 14:07:00 76 /min [facility] Body temperature 2022-01-18 14:07:00 37.17 Lashell [facility] Body height 2022-01-18 14:07:[address] [facility] Body weight 2022-01-18 14:07:[address] [facility] BMI 2022-01-18 14:07:00 26.95 kg/m2 [facility] Oxygen saturation in 2022-01-18 14:07:00 98 /min [facility] Arterial blood by Medical Ce nter Pulse oximetry Procedures Procedure Date / Time Performed Performing Clinician Sourc e CERVICAL CANCER 2022-01-18 16:17:00 [place] [facility] Lunatalie SCREENING AGE [facility] GDLN,CTNGTV ON ALL PATIENTS IGP,CTNGTV,APT 2022-01-18 16:17:00 [place] [facility] [place] HPV,RFX16/[id number],45 [facility] Plan of Care Planned Activity Planned Date Details Comments Source Future Scheduled 2027-01-[address] [facility] 00:00:00 malignant neoplasm Medical C enter of cervix (procedure) [code = 227933532] Future Scheduled 2027-01-[address] [facility] Test 00:00:00 malignant neoplasm Medical C enter of cervix (procedure) [code = 529784861] Future Scheduled 2024-12-[address] [facility] Test 00:00:00 (procedure) [code = [facility] 89024050] Future Scheduled 2024-12-[address] [facility] Test 00:00:00 (procedure) [code = [facility] [id number]] Future Scheduled 2023-02-[address] [facility] Test 00:00:00 (Season Ended) [code Medical Center = INFLUENZA VACCINE (Season Ended)] Future Scheduled 2023-01-[address] [facility] Test 00:00:00 [facility] r Screening (12+) [code = Tobacco Cessation Counseling and Screening (12+)] Future Scheduled 2023-01-[address] [facility] Test 00:00:00 [facility] r Screening (12+) [code = Tobacco Cessation Counseling and Screening (12+)] Future Scheduled 2022-10-16 COVID-19 VACCINE Method[facility] Hospital Test 12:48:09 (#1) [code = COVID-19 VACCINE (#1)] Future Scheduled 2022-10-16 Screening for [facility] Test 12:48:09 malignant neoplasm of cervix (procedure) [code = 849406005] Future Scheduled 2022-10-16 BREAST CANCER [facility] Test 12:48:09 SCREENING [code = BREAST CANCER SCREENING] Future Scheduled 2022-10-16 INFLUENZA VACCINE Method [facility] Test 12:48:09 [code = INFLUENZA VACCINE] Future Scheduled 2022-09-04 [facility] 16:48:17 (#1) [code = COVID-19 VACCINE (#1)] Future Scheduled 2022-09-04 Screening for [facility] Test 16:48:17 malignant neoplasm of cervix (procedure) [code = 804285330] Future Scheduled 2022-09-04 BREAST CANCER [facility] Test 16:48:17 SCREENING [code = BREAST CANCER SCREENING] Future Scheduled 2022-09-04 INFLUENZA VACCINE [facility] Test 16:48:17 [code = INFLUENZA VACCINE] Future Scheduled 2022-06-[address] [facility] Test 00:00:00 (12+) [code = [facility] DEPRESSION SCREENING (12+)] Future Scheduled 2022-06-[address] [facility] Test 00:00:00 (12+) [code = [facility] DEPRESSION SCREENING (12+)] Future Scheduled 2022-02-[address] [facility] Test 00:00:00 (#1) [code = [facility] INFLUENZA VACCINE (#1)] Future Scheduled 2021-06-10 DTAP/TDAP/TD [facility] Test 00:00:00 VACCINES (2 - Tdap) Medical Center [code = DTAP/TDAP/TD VACCINES (2 - Tdap)] Future Scheduled 2021-06-10 DTAP/TDAP/TD [facility] Test 00:00:00 VACCINES (2 - Tdap) Medical Center [code = DTAP/TDAP/TD VACCINES (2 - Tdap)] Future Scheduled [address] [facility] Test 00:00:00 SCREENING [code = Medical nt HEPATITIS C SCREENING] Future Scheduled [address] [facility] Test 00:00:00 SCREENING [code = Medical nter HEPATITIS C SCREENING] Future Scheduled 1980 COVID-[address] [facility] Test 00:00:00 (#1) [code = Medical Center COVID-19 VACCINE (#1)] Future Scheduled 1980 COVID-[address] [facility] Test 00:00:00 (#1) [code = [facility] COVID-19 VACCINE (#1)] Encounters Start End Encounter Admission Attending Care Care Encounter Source Date/Time Date/Time Type Type Clinicians Facility Department ID 2023-02-20 2023-02-20 Outpatient MARLENE YI [id number] Marleen 10:00:00 10:00:00 FAYYAZ Seybol d 2023-01-29 2023-01-29 Outpatient PREMARLENE SANCHEZ [id number] Marlene 08:15:00 08:15:00 MARIO Seybol d 2022-09-26 2022-09-26 Outpatient PRECELESTINOSMARLENE [id number] Marlene 11:15:00 11:15:00 MARIO Seybol d 2022-09-10 2022-09-10 Outpatient PREZASMARLENE [id number] Marlene 16:30:00 16:30:00 MARIO Seybol d 2022-09-05 2022-09-05 Outpatient PREMARLENE SANCHEZ [id number] Marlene 00:00:00 00:00:00 MARIO Seybol d 2022-09-05 2022-09-05 Outpatient PREZASMARLENE [id number] Marlene 00:00:00 00:00:00 MARIO Seybol d 2022-09-04 2022-09-04 Outpatient PREZASMARLENE [id number] Marlene 00:00:00 00:00:00 MARIO Seybol d 2022-08-08 2022-08-08 Outpatient LAB59 MARLENE LOZANO [id number] Marlene 10:45:00 10:45:00 Seybol d 2022-08-08 2022-08-08 Outpatient MARLENE YI [id number] Marlene 10:15:00 10:15:00 FAYYAZ Seybol d 2022-08-02 2022-08-02 Outpatient PREZAS, MARLENE LOZANO [id number] Marlene 00:00:00 00:00:00 MARIO Seybol d 2022-08-01 2022-08-01 Outpatient PREZAS, MARLENE LOZANO [id number] Marlene 10:45:00 10:45:00 MARIO Seybol d 2022-07-13 2022-07-13 Outpatient PREZAS, MARLENE LOZANO [id number] Marlene 00:00:00 00:00:00 MARIO Seybol d 2022-07-10 2022-07-10 Outpatient PREZAS, MARLENE LOZANO [id number] Marlene 00:00:00 00:00:00 MARIO Seybol d 2022-07-04 2022-07-04 Outpatient PREZAS, MARLENE LOZANO [id number] Marlene 00:00:00 00:00:00 MARIO Seybol d 2022-06-29 2022-06-29 Outpatient PREZAS, MARLENE LOZANO [id number] Marlene 08:15:00 08:15:00 MARIO Seybol d 2022-06-28 2022-06-28 Outpatient PREZAS, MARLENE LOZANO [id number] Marlene 13:45:00 13:45:00 MARIO Seybol d 2022-06-20 2022-06-20 Outpatient PREZAS, MARLENE LOZANO [id number] Marlene 08:00:00 08:00:00 MARIO Seybol d 2022-06-12 2022-06-12 Outpatient PREZAS, MARLENE LOZANO [id number] Marlene 00:00:00 00:00:00 MARIO Seybol d 2022-04-25 2022-04-25 Orders [facility] [id number] 00:00:00 00:00:00 [facility] 2022-04-25 2022-04-25 Orders [facility] [id number] 00:00:00 00:00:00 [facility] 2022-03-14 2022-03-14 Outpatient PREZAS, MARLENE LOZANO [id number] Marlene 00:00:00 00:00:00 MARIO Seybol d 2022-03-14 2022-03-14 Outpatient PREZAS, MARLENE LOZANO [id number] Marlene 00:00:00 00:00:00 MARIO Seybol d 2022-03-14 2022-03-14 Outpatient PREZAS, MARLENE LOZANO [id number] Marlene 00:00:00 00:00:00 MARIO Seybol d 2022-03-07 2022-03-07 Outpatient PREZAS, MARLENE LOZANO [id number] Marlene 00:00:00 00:00:00 MARIO Seybol d 2022-03-07 2022-03-07 Outpatient PREZAS, MARLENE LOZANO [id number] Marlene 00:00:00 00:00:00 MARIO Seybol d 2022-02-27 2022-02-27 Orders [facility] [id number] 00:00:00 00:00:00 [facility] 2022-02-27 2022-02-27 Orders [facility] [id number] 00:00:00 00:00:00 [facility] 2022-01-22 2022-01-22 Outpatient PREZAS, MARLENE LOZANO [id number] Marlene 00:00:00 00:00:00 MARIO Seybol d 2022-01-22 2022-01-22 Outpatient PREZAS, MARLENE LOZANO [id number] Marlene 00:00:00 00:00:00 MARIO Seybol d 2022-01-18 2022-01-18 Office [place] [facility] [id number] 13:30:00 14:30:08 Visit [facility] 2022-01-18 2022-01-18 Office [place] [facility] [id number] 13:30:00 14:30:08 Visit [facility] 2022-01-11 2022-01-11 Office Raghav Mancilla [id number] Marlene 08:30:00 08:45:00 Visit Mario Mendiola [id number] Se ybold [id number] 2022-01-10 2022-01-10 Outpatient LAB59 MARLENE LOZANO [id number] Marlene 09:45:00 09:45:00 Seybol d 2022-01-10 2022-01-10 Office AsafRAFAEL [id number] Marlene 09:00:00 09:30:00 Visit Tess [id number] Se ybold [id number] 2022-01-10 2022-01-10 Outpatient MARLENE LOZANO [id number] Marlene 09:05:00 09:05:00 Seybol d 2022-01-01 2022-01-01 Outpatient PREDANIEL, MARLENE LOZANO [id number] Marlene 00:00:00 00:00:00 MARIO Seybol d 2022-01-01 2022-01-01 Outpatient MARLENE MANCILLA [id number] Marlene 00:00:00 00:00:00 MARIO Seybol d 2021-12-29 2021-12-29 Outpatient MARLENE MANCILLA [id number] Marlene 00:00:00 00:00:00 MARIO Seybol d 2021-12-28 2021-12-28 Outpatient LAB90 MARLENE LOZANO [id number] Marlene 09:45:00 09:45:00 Seybol d 2021-12-28 2021-12-28 Office Raghav Mancilla [id number] Marlene 09:00:00 09:30:00 Visit Mario Mendiola [id number] Se ybold [id number] 2021-12-18 2021-12-18 [facility] [id number] 00:00:00 00:00:00 [facility] 2021-07-19 2021-07-19 [facility] [id number] 00:00:00 00:00:00 [facility] 2021-07-06 2021-07-06 Outpatient [facility], [facility] [id number] 00:00:00 00:00:00 [facility] 2021-07-03 2021-07-03 Outpatient [email or web address] PRIV PRIV [id number] [facility] 04:19:00 04:19:00 ayle_RA [id number] Medica l Results Test Description Test Time Test Comments Results Result Comments Source CERVICAL CANCER SCREENING AGE GDLN,CTNGTV ON ALL PATIENTS 30-01-16 11:11:00 Test Item Value Reference Range Interpretation Comme nts Age Gdln ACOG Testing (test code = 20141219) SAMANTHA (test code = SAMANTHA) Specimen Comment: No. of containers..01 ThinPrep VialPerformed at: [address] [id number] Director: Clay Rebolledo MD, Phone: [phone] [facility] HPV,RFX16/18,[id number] 11:11:00 Test Item Value Reference Interpretation Comments Range DIAGNOSIS: Comment NEGATIVE FOR (test code = INTRAEPITHELIAL LESION ) OR MALIGNANCY. Specimen Comment Satisfactory fo r adequacy: (test evaluation. code = ) Endocervical and/or squamous metaplasticcell s (endocervical component) are present. Performed by: Comment Donta Mcelroy , (test code = Cytote[employer]olog[employer] t ) (ASCP) . (test code = . 20111010) Note: (test Comment The Pap smear i s a code = ) screening te st designed to aid in the detection ofpremalignant and malignant condi tions of the uterine cervix. It is not adiag nostic procedure and s hould not be used as the sole means of detectingcervic al cancer. Both false-positive and false-negative reports do occur. Test Comment This liquid bas ed Methodology: ThinPrep(R) pap test (test code = was screened wi ) theuse of an im age guided system. HPV APTIMA Negative Negative This nucleic ac id (test code = amplification t est ) detects fourtee n high-riskHPV ty pes (16,18,31,33,35 ,39,45, 51,52,56,58,59, 66,68) withoutdifferen tiation . Chlamydia, Nuc. Negative Negative Acid Amp (test code = 58919-7) Gonococcus, Negative Negative Nuc. Acid Amp (test code = 7555516) Trich vag by Negative Negative JETT (test code = 0503616) SAMANTHA (test code Specimen Comment: = SAMANTHA) No. of containers..01 ThinPrep VialPerformed at: - [facility] [id number] [facility] [address] [id number] Director: Tina Hinson MD, Phone: [phone] at: - [facility] [id number] Director: Clay Rebolledo MD, Phone: [phone] at: [facility] [id number] Director: Clay Rebolledo MD, Phone: [phone] [facility] GDLN,CTNGTV ON ALL [id number] 11:11:00 Test Item Value Reference Range Interpretation Comments Age Gdln ACOG 30-65 Testing (test code = 9913862) SAMANTHA (test code = Specimen Comment: No. of SAMANTHA) containers..01 ThinPrep VialPerformed at: [facility] [id number] Director: Clay Rebolledo MD, Phone: [phone] [facility] HospitalIGP,CTNGTV,APT HPV,RFX16/18,[id number] 11:11:00 Test Item Value Reference Interpretation Comments Range DIAGNOSIS: Comment NEGATIVE FOR (test code = INTRAEPITHELIAL LESION ) OR MALIGNANCY. Specimen Comment Satisfactory fo r adequacy: (test evaluation. code = ) Endocervical and/or squamous metaplasticcell s (endocervical component) are present. Performed by: Comment Donta Mcelroy , (test code = Cytote[employer]ologis t ) (ASCP) . (test code = . 20111010) Note: (test Comment The Pap smear i s a code = 0542964) screening te st designed to aid in the detection ofpremalignant and malignant condi tions of the uterine cervix. It is not adiag nostic procedure and s hould not be used as the sole means of detectingcervic al cancer. Both false-positive and false-negative reports do occur. Test Comment This liquid bas ed Methodology: ThinPrep(R) pap test (test code = was screened wi th ) theuse of an im age guided system. HPV APTIMA Negative Negative This nucleic ac id (test code = amplification t est ) detects fourtee n high-riskHPV ty pes (16,18,31,33,35 ,39,45, 51,52,56,58,59, 66,68) withoutdifferen tiation . Chlamydia, Nuc. Negative Negative Acid Amp (test code = 94581-8) Gonococcus, Negative Negative Nuc. Acid Amp (test code = 0218617) Trich vag by Negative Negative JETT (test code = 6893695) SAMANTHA (test code Specimen Comment: = SAMANTHA) No. of containers..01 ThinPrep VialPerformed at: 02 - [facility] [address] [address], [place], [place] [id number] Director: Tina Hinson MD, Phone: [phone] at: 03 - [facility] [id number] Director: Clay Rebolledo MD, Phone: [phone] at: - [facility] [id number] Director: Clay Rebolledo MD, Phone: [phone] [facility]
[2022-10-16 13:24] LABS: Absolute Lymphocytes (CBC) 1.7 K/uL (0.7-4.9); Hematocrit 36.2 % (36.0-45.0); Lymphocytes % 22.6 % (15.3-44.8); MCV 92.2 fL (80-100); MPV 6.6 fL (7.6-11.3); RBC Red Blood Cell Count 3.92 M/uL (3.86-4.86)
[2022-10-16 13:37] LABS: Potassium 3.2 mEq/L (3.5-5.1)
--- NOTE | 2022-10-16 13:45 | RAD REPORT ---
EXAM DESCRIPTION: RAD - Knee Left 3 View - 10/16/2022 1:28 pm CLINICAL HISTORY: Left knee pain FINDINGS: No fracture or dislocation is seen. Small to moderate joint effusion suspected Minimal osteoarthritis
--- NOTE | 2022-10-16 13:46 | RAD REPORT ---
EXAM DESCRIPTION: USExtremity Venous Uni Ltd10/16/2022 1:40 pm CLINICAL HISTORY: left leg pain COMPARISON: August 2022 FINDINGS: Left common femoral, superficial femoral, greater saphenous, popliteal and posterior tibi al veins are compressible and demonstrate augmentation. Doppler demonstrates good flow. Grayscale, color and spectral analysis performed on all vessels IMPRESSION: No evidence of deep venous thrombosis involving the left lower extremity.
[2022-10-16] MEDS ORDERED: KETOROLAC 30 MG/ML INJ ONE (16:17)
[2022-10-16 17:01] LABS: Body Fluid WBC 16110 /mm^3
[2022-10-16 17:04] LABS: Appearance TURBID (CLEAR); Body Fluid Source SYNOVIAL; Color of fluid Orange (COLORLESS)
--- NOTE | 2022-10-16 18:03 | ER ---
Nurse's Notes [facility] Name: Karie Bennett Age: 42 yrs Sex: Female : 1980 Arrival Date: 10/16/2022 Time: 12:44 Bed 20 Private MD: Diagnosis: Effusion, left knee;Inflammatory arthritis of left knee Presentation: 10/16 12:57 Chief complaint: Patient states: left knee pain and swelling, looks like her knee cap iw moves in and out, cannot bear weight. Coronavirus screen: At this time, the client does not indicate any symptoms associated with coronavirus-19. Ebola Screen: Patient negative for fever greater than or equal to 101.5 degrees Fahrenheit, and additional compatible Ebola Virus Disease symptoms Patient denies exposure to infectious person. Patient denies travel to an Ebola-affected area in the 21 days before illness onset. No symptoms or risks identified at this time. Risk Assessment: Do you want to hurt yourself or someone else? Patient reports no desire to harm self or others. Onset of symptoms was October 16, 2022. 12:57 Method Of Arrival: Wheelchair iw 12:57 Acuity: KATT 4 iw 13:04 Initial Sepsis Screen: Does the patient meet any 2 criteria? No. Patient's initial iw sepsis screen is negative. Does the patient have a suspected source of infection? No. Patient's initial sepsis screen is negative. 13:04 Acuity: KATT 3 iw Historical: - Allergies: 13:33 No Known Allergies; iw - Home Meds: 12:57 lisinopril 40 mg Oral tab 1 tab once daily [Active]; iw - PMHx: 12:57 Hypertensive disorder; Raynaud's syndrome; Sjogren's Syndrome; Unspecified Congenitive iw tissue disorder; - PSHx: 12:57 gastric sleeve; R wrist; tubal ligation; Tummy tuck; varicose veins procedure; iw - Immunization history:: Adult Immunizations unknown. - Social history:: Smoking status: unknown. - Family history:: not pertinent. - Hospitalizations: : No recent hospitalization is reported. Screenin:32 [facility] ED Fall Risk Assessment (Adult) History of falling in the last 3 months, iw including since admission No falls in past 3 months (0 pts) Confusion or Disorientation No (0 pts) Intoxicated or Sedated No (0 pts) Impaired Gait Yes (1 pt) Mobility Assist Device Used No (0 pt) Altered Elimination No (0 pt) Score/Fall Risk Level 0 - 2 = Low Risk Oriented to surroundings, Maintained a safe environment, Hourly rounding (assess needs \T\ fall precautionary measures) done. Abuse screen: Denies threats or abuse. Denies injuries from another. Nutritional screening: No deficits noted. Tuberculosis screening: No symptoms or risk factors identified. Assessment: 13:32 Reassessment: US at bedside. iw 14:34 General: Appears in no apparent distress. comfortable, well groomed, Behavior is calm, ph cooperative, appropriate for age. Pain: Complains of pain in left knee. Neuro: Level of Consciousness is awake, alert, obeys commands, Oriented to person, place, time, situation. Cardiovascular: Capillary refill < 3 seconds in bilateral fingers Patient's skin is warm and dry. Respiratory: Airway is patent Respiratory effort is even, unlabored, Respiratory pattern is regular, symmetrical. GI: No signs and/or symptoms were reported involving the gastrointestinal system. Derm: Skin is pink, warm \T\ dry. Musculoskeletal: Swelling present in left knee. 14:36 Reassessment: Consent signed for joint aspiration of L knee, DR Catherine at bedside for ph procedure. 15:59 Pain: Complains of pain in left knee Pain does not radiate. Pain currently is 10 out of mb9 10 on a pain scale. Quality of pain is described as throbbing. Derm: Skin is pink, warm \T\ dry. 16:52 Reassessment: Patient and/or family updated on plan of care and expected duration. Pain mb9 level reassessed. Patient is alert, oriented x 3, equal unlabored respirations, skin warm/dry/pink. Patient states symptoms have not improved. Vital Signs: 13:33 BP 149 / 93; Pulse 83; Resp 18; Temp 98.2; Pulse Ox 98% on R/A; Pain 10/10; iw 15:59 BP 143 / 99; Pulse 83; Resp 16; Pulse Ox 100% on R/A; mb9 16:52 BP 146 / 101; Pulse 78; Resp 16; Pulse Ox 97% on R/A; mb9 18:19 BP 142 / 84; Pulse 74; Resp 15; Pulse Ox 97% on R/A; mb9 13:33 Pain Scale: Adult iw ED Course: 12:46 Patient arrived in ED. rg4 12:51 Brian Catherine MD is Attending Physician. rn 12:57 Triage completed. iw 12:58 Arm band placed on. iw 13:05 Amanda Pollack, RN is Primary Nurse. iw 13:12 Inserted saline lock: 20 gauge in right antecubital area, using aseptic technique. iw Blood collected. 13:12 Protime (+inr) Sent. iw 13:12 Ptt, Activated Sent. iw 13:12 Basic Metabolic Panel Sent. iw 13:12 CBC with Diff Sent. iw 13:30 XRAY Knee LEFT 3 view In Process Unspecified. EDMS 13:34 Patient has correct armband on for positive identification. Bed in low position. Call iw light in reach. Side rails up X 1. 13:42 Extremity Venous Uni Ltd US In Process Unspecified. EDMS 13:51 Primary Nurse role handed off by Amanda Pollack RN ph 13:51 Neelima Juares RN is Primary Nurse. ph 17:28 Primary Nurse role handed off by Neelima Juares RN bd 18:02 Adolfo Lemus MD is Referral Physician. rn 18:20 No provider procedures requiring assistance completed. IV discontinued, intact, mb9 bleeding controlled, No redness/swelling at site. Pressure dressing applied. Administered Medications: 13:44 Drug: morphine IVP or IV 4 mg Route: IVP; Infused Over: 4 mins; Site: right antecubital;iw 13:44 Drug: Ondansetron IVP 4 mg Route: IVP; Site: right antecubital; iw 14:37 Drug: Lidocaine Infiltration (1 %) 5 mg {Note: to L knee per Dr Catherine.} Route: ph Infiltration; 16:13 Drug: Ketorolac IVP 15 mg Route: IVP; Site: right antecubital; mb9 16:55 Follow up: Response: No adverse reaction mb9 18:17 Drug: Decadron - Dexamethasone IVP 10 mg Route: IVP; Site: right forearm; mb9 18:19 Follow up: Response: No adverse reaction mb9 Medication: 13:32 VIS not applicable for this client. iw Outcome: 18:02 Discharge ordered by . rn 18:20 Discharged to home via wheelchair. mb9 18:20 Condition: stable 18:20 Discharge instructions given to patient, Instructed on discharge instructions, follow up and referral plans. Demonstrated understanding of instructions, follow-up care, medications, Prescriptions given X 2. 18:20 Patient left the ED. mb9 Signatures: Dispatcher [employer] EDMS Rosio Resendez Irene, RN Brian Gilliam MD MD rn Hall, Patricia, RN RN ph Garcia, Suzette villatoro4 Lary, Miya Wiggins RN RN mb9 Corrections: (The following items were deleted from the chart) 13:44 13:33 BP 149 / 93; Pulse 83bpm; Resp 18bpm; Pulse Ox 98% RA; iw iw 16:52 15:59 Derm: Skin is pink, warm \T\ dry. mb9 mb9
--- NOTE | 2022-10-16 18:04 | EDPHYS ---
Physician Documentation [facility] Name: Karie Bennett Age: 42 yrs Sex: Female : 1980 Arrival Date: 10/16/2022 Time: 12:44 Bed 20 Private MD: ED Physician Brian Catherine HPI: 10/16 13:53 This 42 yrs old Black Female presents to ER via Wheelchair with complaints of Knee rn Pain, Knee Swelling. 13:53 The patient presents with pain, swelling. The complaints affect the left knee. Onset: rn The symptoms/episode began/occurred 3 day(s) ago. Modifying factors: The symptoms are alleviated by remaining still, the symptoms are aggravated by weight bearing, bending knee. Severity of symptoms: At their worst the symptoms were moderate, in the emergency department the symptoms are unchanged. The patient has not experienced similar symptoms in the past. The patient has been recently seen by a physician:. Pt reports left knee pain, began 3-4 days ago, no injury or trauma. Has multiple rheumatologic problems, sent here by her pesticide use medical coordinator for eval. Reports pain with ROM and weight bearing, worse today. No fever/chills. Told also that had superficial blood clot in left leg above knee, confirmed on U/S not to be DVT. . Historical: - Allergies: 13:33 No Known Allergies; iw - Home Meds: 12:57 lisinopril 40 mg Oral tab 1 tab once daily [Active]; iw - PMHx: 12:57 Hypertensive disorder; Raynaud's syndrome; Sjogren's Syndrome; Unspecified Congenitive iw tissue disorder; - PSHx: 12:57 gastric sleeve; R wrist; tubal ligation; Tummy tuck; varicose veins procedure; iw - Immunization history:: Adult Immunizations unknown. - Social history:: Smoking status: unknown. - Family history:: not pertinent. - Hospitalizations: : No recent hospitalization is reported. ROS: 13:53 Constitutional: Negative for fever, chills, and weight loss, Cardiovascular: Negative rn for chest pain, palpitations, and edema, Respiratory: Negative for shortness of breath, cough, wheezing, and pleuritic chest pain, Abdomen/GI: Negative for abdominal pain, nausea, vomiting, diarrhea, and constipation, Back: Negative for injury and pain, MS/Extremity: + left knee pain and swelling Skin: Negative for injury, rash, and discoloration, Neuro: Negative for headache, weakness, numbness, tingling, and seizure. Exam: 13:53 Constitutional: This is a well developed, well nourished patient who is awake, alert, rn and in no acute distress. Cardiovascular: Regular rate and rhythm. No pulse deficits. Respiratory: No increased work of breathing, no retractions or nasal flaring. Skin: Warm, dry, no streaking. MS/ Extremity: Pulses equal, no cyanosis. Neurovascular intact. + varicose veins LLE. Equal circumference of bialteral lower extremities. + mild swelling left knee without warmth or erythema. No wounds overlying knee. Vital Signs: 13:33 BP 149 / 93; Pulse 83; Resp 18; Temp 98.2; Pulse Ox 98% on R/A; Pain 10/10; iw 15:59 BP 143 / 99; Pulse 83; Resp 16; Pulse Ox 100% on R/A; mb9 16:52 BP 146 / 101; Pulse 78; Resp 16; Pulse Ox 97% on R/A; mb9 18:19 BP 142 / 84; Pulse 74; Resp 15; Pulse Ox 97% on R/A; mb9 13:33 Pain Scale: Adult iw Procedures: 14:49 Joint Treatment: Aspiration of left knee using 22g needle. Removed 10 ml's of yellow rn fluid, bloody fluid, Specimen sent to lab. Dressed with band aid, Patient tolerated well. Numbed with lidocaine, 3cc, left medial knee, after betadine used to clean and disinfect. All sterile procedure. . MDM: 12:52 Patient medically screened. rn 17:33 Management of patient was discussed with the following: Jeeper Operator: Dr. Lemus, will rn come by and eval patient. Most likely inflammatory arthritis but patient continues to have 8/10 pain despite pain meds and 97% neutrophils. Will make dispo after Dr. Lemus's evaluation.. 18:01 Differential diagnosis: inflammatory or reactive arthritis, rheumatologic problem, knee rn effusion. Data reviewed: vital signs, nurses notes, lab test result(s), radiologic studies, plain films, ultrasound, and as a result, I will discharge patient. Counseling: I had a detailed discussion with the patient and/or guardian regarding: the historical points, exam findings, and any diagnostic results supporting the discharge/admit diagnosis, lab results, radiology results, the need for outpatient follow up, to return to the emergency department if symptoms worsen or persist or if there are any questions or concerns that arise at home. Response to treatment: the patient's symptoms have mildly improved after treatment, and as a result, I will discharge patient. Special discussion: I discussed with the patient/guardian in detail that at this point there is no indication for admission to the hospital. It is understood, however, that if the symptoms persist or worsen the patient needs to return immediately for re-evaluation. Based on the history and exam findings, there is no indication for further emergent testing or inpatient evaluation. I discussed with the patient/guardian the need to see the orthopedic surgeon for further evaluation of the symptoms. I discussed with the patient/guardian the need to see the primary care provider for further evaluation of the symptoms. I discussed with the patient/guardian the need to see the pesticide use medical coordinator for further evaluation of the symptoms. ED course: Dr. Lemus evaluated patient here in ER, does not believe it is septic arthritis, recommends steroids and immobilization with dc home and return precautions. . 10/16 13:02 Order name: CBC with Diff; Complete Time: 13:49 10/16 13:02 Order name: Basic Metabolic Panel; Complete Time: 13:49 rn 10/16 13:02 Order name: Protime (+inr); Complete Time: 13:49 rn 10/16 13:02 Order name: Ptt, Activated; Complete Time: 13:49 10/16 13:02 Order name: Procalcitonin; Complete Time: 14:12 10/16 14:49 Order name: Fluid Cell Count,Body; Complete Time: 17:05 rn 10/16 14:49 Order name: Body Fluid Culture rn 10/16 14:49 Order name: Crystals, Fluid; Complete Time: 15:55 rn 10/16 13:02 Order name: XRAY Knee LEFT 3 view; Complete Time: 13:49 rn 10/16 13:03 Order name: Extremity Venous Uni Ltd US; Complete Time: 13:49 rn 10/16 13:02 Order name: IV Start; Complete Time: 13:12 10/16 14:13 Order name: Misc. Order: consent for knee aspiration, left knee; Complete Time: 14:36 rn 10/16 18:01 Order name: Knee Immobilizer; Complete Time: 18:17 rn Administered Medications: 13:44 Drug: morphine IVP or IV 4 mg Route: IVP; Infused Over: 4 mins; Site: right antecubital;iw 13:44 Drug: Ondansetron IVP 4 mg Route: IVP; Site: right antecubital; iw 14:37 Drug: Lidocaine Infiltration (1 %) 5 mg {Note: to L knee per Dr Catherine.} Route: ph Infiltration; 16:13 Drug: Ketorolac IVP 15 mg Route: IVP; Site: right antecubital; mb9 16:55 Follow up: Response: No adverse reaction mb9 18:17 Drug: Decadron - Dexamethasone IVP 10 mg Route: IVP; Site: right forearm; mb9 18:19 Follow up: Response: No adverse reaction mb9 Disposition Summary: 10/16/22 18:02 Discharge Ordered Location: Home rn Problem: new rn Symptoms: have improved rn Condition: Stable rn Diagnosis - Effusion, left knee rn - Inflammatory arthritis of left knee rn Followup: rn - With: Adolfo Lemus MD - When: 2 - 3 days - Reason: Recheck today's complaints, Re-evaluation by your physician Discharge Instructions: - Discharge Summary Sheet rn - Knee Effusion rn - Knee Arthrocentesis rn Forms: - Medication Reconciliation Form rn - Thank You Letter rn - Antibiotic referral rn - Prescription Opioid Use rn - Work release form mb9 Prescriptions: - Tramadol 50 mg Oral Tablet - take 1 tablet by ORAL route every 8 hours as needed; 12 tablet; Refills: 0, rn Product Selection Permitted - Medrol (Miguel) 4 mg Oral Tablets, Dose Pack - take 1 tablet by ORAL route as directed - follow package instructions; 1 rn packet; Refills: 0, Product Selection Permitted Signatures: Dispatcher [employer] Amanda Gamino RN RN Brian Bolanos MD MD rn Hall, Patricia, RN RN ph Breneman, Mary Beth, RN RN mb9
[2022-10-16] MEDS ORDERED: dexAMETHasone 10 MG/ML VIAL ONE (18:17)
[2022-10-16 18:43] VITALS: TEMP 98.2
[2022-10-16 18:46] VITALS: O2SAT 97
[2022-10-16 18:47] VITALS: BP 142/84
--- NOTE | 2022-10-17 14:05 | CON ---
Date of Consultation: 10/16/2022 History Of Present Illness: I have seen Ms. Bennett, who apparently has seen me in the past, although I do not have any current memory of seeing her for her left knee. She has had a 3-day history of in creasing left knee pain and swelling and now has difficulty with motion and ambulation. She says arsenio t she has had problems with her knee in the past being swollen, however, not of this extent. She say s she has not been febrile and does not feel systemically ill. Prior to me seeing her, she was seen and evaluated by the emergency department where she was afebrile, her white count was normal and x-ra ys were normal with the exception of swelling. She had an aspiration, which demonstrated a quite low white blood cell count. Her analysis, however, was 97% neutrophils. Based on her significant pain, they asked me to see her for the possibility of septic arthritis. Physical Examination: On physical examination, she is lying in the bed with her knee flexed approximately 30 degrees on a b olster. She does have a 1 to 2+ effusion. She does have warmth associated with the knee compared to the contralateral side. There is no obvious erythema. She appears to be neurovascularly intact. S he denies any other pain. Very gentle range of motion causes discomfort, however, not excruciating p ain and she is able to contract her quadriceps for straight leg raise; however, she complains of pain . Assessment: She obviously has history of rheumatoid disease and a very inflamed left knee. Aspirati on does give some indication that this could be more than strictly inflammation because she has 97% n eutrophils; however, the white blood cell count is quite low and she is not on any immunosuppressives , does not have any other systemic signs of febrile illness. At this time, I would advise against th e use of antibiotics as I do not believe that this is infected; however, it were to become infected o r was infected, however, not clinically evident at this time, which I deem is extremely unlikely poss ibility, although it was worth monitoring, antibiotics may improve it slightly causing delay in diagn osis and treatment; however, I believe this is most likely related to rheumatologic or even unrealize d trauma and we would recommend corticosteroids for the rheumatologic aspect and otherwise bracing an d follow up for the possibility of traumatic injury such as meniscal tear or other internal derangeme nt. This has been discussed with both the patient as well as ER physician and all their questions lee ve been answered. AMANDA Voice ID: [id number] Report ID: [id number]
== END 2022-10-16 18:20 | disposition home or self-care (01) ==
LOC: ER 12:44
PROC: 0S9D3ZX Drainage of Left Knee Joint, Percutaneous Approach, Diagnostic (ICD-10-PCS; principal; 2022-10-16)
DX: M13.862 Other specified arthritis, left knee (principal); I10 Essential (primary) hypertension
CPT/HCPCS: 87070; 85025; 80048; 36415; 89050; 85610; 85730; 89060; 84145; 73562; 93971; 99284; 10021; J1100